=== PATIENT | male | born 1975 | race Caucasian/White ===

== ENCOUNTER 2016-09-02 16:35 | Emergency (ER) | payer OTHER ==
[~2016-09-02] VITALS: Ht 182.8 cm; Wt 77.1 kg
[~2016-09-02 16:35] MED LIST: ANAPROX DS550 MG PO; AUGMENTIN 875 M1 TAB PO; BIAXIN500 MG PO; CIPRODEX 0.3%-7.5 ML OT; CLINDAMYCIN HC300 MG PO; HYDROCODONE BIT1 T11 PO; LISINOPRIL5 MG PO
== END 2016-09-02 17:57 | disposition home or self-care (01) ==
LOC: ED 16:35
DX: S60.221A Contusion of right hand, initial encounter (principal); F17.200 Nicotine dependence, unspecified, uncomplicated; Z88.0 Allergy status to penicillin; Z79.899 Other long term (current) drug therapy; X58.XXXA Exposure to other specified factors, initial encounter; Y93.89 Activity, other specified; Y92.89 Other specified places as the place of occurrence of the external cause; Y99.9 Unspecified external cause status

== ENCOUNTER 2016-12-28 14:23 | Emergency (ER) | payer OTHER ==
[~2016-12-28] VITALS: Ht 177.8 cm; Wt 81.6 kg
== END 2016-12-28 16:03 | disposition home or self-care (01) ==
LOC: ED 14:23
DX: M54.12 Radiculopathy, cervical region (principal); F17.200 Nicotine dependence, unspecified, uncomplicated; Z79.899 Other long term (current) drug therapy; Z88.0 Allergy status to penicillin

== ENCOUNTER 2019-01-17 12:55 | Emergency (ER) | payer OTHER ==
[~2019-01-17] VITALS: Wt 81.6 kg
[2019-01-17] MEDS ORDERED: SEPTDS PO (14:32)
== END 2019-01-17 14:37 | disposition home or self-care (01) ==
LOC: ED 12:55
DX: S69.91XA Unspecified injury of right wrist, hand and finger(s), initial encounter (principal); L03.113 Cellulitis of right upper limb; F17.200 Nicotine dependence, unspecified, uncomplicated; Z79.899 Other long term (current) drug therapy; Z88.0 Allergy status to penicillin; W20.8XXA Other cause of strike by thrown, projected or falling object, initial encounter; Y93.89 Activity, other specified; Y92.89 Other specified places as the place of occurrence of the external cause; Y99.8 Other external cause status

== ENCOUNTER 2019-02-07 14:53 | Inpatient (IN) | payer OTHER ==
[~2019-02-07] VITALS: Ht 182.8 cm; Wt 80.5 kg
[~2019-02-07 14:53] MED LIST changes: +SEPTDS PO
[2019-02-07 14:55] VITALS: BP 158/108
[2019-02-07 15:29] LABS: BASO % 0.4 % (0.0-1.0); EOS # 0.2 10*3/uL (0.0-0.4); EOS % 2.6 % (1.0-4.0); HEMATOCRIT 40.6 % (42.0-52.0); HEMOGLOBIN 13.4 g/dl (14.0-18.0); LYMPH # 1.1 10*3/uL (1.3-4.4); LYMPH % 12.5 % (27.0-41.0); MEAN CELL VOLUME 94.6 fl (80.0-94.0); MEAN CORPUSCULAR HGB 31.2 pg (27.0-31.0); MEAN PLATELET VOLUME 11.3 fl (9.6-12.3); MONO # 1.2 10*3/uL (0.1-1.0); MONO % 13.5 % (3.0-9.0); NEUT # 6.4 10*3/uL (2.3-7.9); NEUT % 70.8 % (47.0-73.0); PLATELET COUNT AUTOMATED 174 10*3/uL (130-400); RED BLOOD COUNT 4.29 10*6/uL (4.50-5.90); RED CELL DISTRI WIDTH 12.8 % (0-14.5)
--- NOTE | 2019-02-07 15:38 | NUR ---
TORADOL AND ZOFRAN GIVEN BY ARISTEO ISIDRO
[2019-02-07 15:40] LABS: ACT PARTIAL THROMBO TIME 25.4 SECONDS (20.0-32.1)
[2019-02-07 15:44] LABS: ALBUMIN 3.5 gm/dl (3.1-4.5); ALKALINE PHOSPHATASE 82 U/L (45-117); BUN 6 mg/dl (7-24); CHLORIDE 99 mmol/L (98-107); CREATININE 0.65 mg/dL (0.70-1.30); POTASSIUM 3.8 mmol/L (3.5-5.1); SGOT/AST 47 IU/L (3-35); SGPT/ALT 43 U/L (12-78); SODIUM 130 mmol/L (136-145); TOTAL PROTEIN 7.3 gm/dL (6.4-8.2)
[2019-02-07 15:47] LABS: LIPASE 20884 U/L (73-393)
--- NOTE | 2019-02-07 15:55 | NUR ---
LAB CALLED WITH CRITICAL AMYLASE OF 1302
[2019-02-07 16:48] VITALS: BP 130/91
[2019-02-07 16:49] LABS: BILIRUBIN 2+ (NEGATIVE); BLOOD NEGATIVE (NEGATIVE); CLARITY CLEAR (CLEAR); COLOR ORANGE (YELLOW); GLUCOSE NEGATIVE (NEGATIVE); KETONE 2+ (NEGATIVE); LEUKO ESTERASE NEGATIVE (NEGATIVE); NITRITE POSITIVE (NEGATIVE); SPECIFIC GRAVITY 1.025 (1.005-1.030)
[2019-02-07 16:58] LABS: BACTERIA TRACE; MUCOUS 2+; RBC 0-2 rbc/hpf (0-2)
[2019-02-07 20:45] VITALS: BP 152/69
--- NOTE | 2019-02-07 20:45 | NUR ---
A 43, admitted to , under the services of MARVA Montero DO with a diagnosis of PANCREATITIS. Chief complaint is ABDOMINAL PAIN. Patient arrived via bed from ER. Monitor applied. Initial assessment completed. Vital signs taken and recorded. MARVA MONTERO DO notified of admission to the unit. Orders received. See assessment for past medical history, medications and allergies. Patient and/or family oriented to unit. [facility] visitation policy reviewed. Clothing/patient valuable form completed. MEHRDAD WALKER
--- NOTE | 2019-02-07 21:20 | NUR ---
DR ROSE NOTIFIED OF CONSULT. ORDERS TO REPEAT AMYLASE, LIPASE AND LFT IN AM AND TO CALL HIM WITH RESULTS.
[2019-02-08] VITALS: BP 138/80
--- NOTE | 2019-02-08 05:27 | NUR ---
MEDICATED WITH PRN DILAUDID ORDERED FOR C/O ABDOMINAL PAIN RATED 8/10
[2019-02-08 06:27] LABS: BASO % 0.6 % (0.0-1.0); EOS # 0.3 10*3/uL (0.0-0.4); HEMATOCRIT 39.2 % (42.0-52.0); HEMOGLOBIN 12.6 g/dl (14.0-18.0); LYMPH # 1.5 10*3/uL (1.3-4.4); LYMPH % 23.5 % (27.0-41.0); MEAN CELL VOLUME 97.3 fl (80.0-94.0); MEAN CORPUSCULAR HGB 31.3 pg (27.0-31.0); MEAN CORPUSCULAR HGB CONC 32.1 g/dl (33.0-37.0); MEAN PLATELET VOLUME 11.6 fl (9.6-12.3); MONO # 0.8 10*3/uL (0.1-1.0); MONO % 13.6 % (3.0-9.0); NEUT # 3.5 10*3/uL (2.3-7.9); PLATELET COUNT AUTOMATED 189 10*3/uL (130-400); RED BLOOD COUNT 4.03 10*6/uL (4.50-5.90); RED CELL DISTRI WIDTH 12.9 % (0-14.5); WHITE BLOOD COUNT 6.2 10*3/uL (4.8-10.8)
[2019-02-08 06:51] LABS: ALBUMIN 3.2 gm/dl (3.1-4.5); BILIRUBIN, DIRECT 0.5 mg/dL (0.0-0.2); BUN 6 mg/dl (7-24); CHLORIDE 98 mmol/L (98-107); CHOLESTEROL 129 mg/dL (<200); POTASSIUM 3.1 mmol/L (3.5-5.1); SGOT/AST 46 IU/L (3-35); SODIUM 132 mmol/L (136-145); TRIGLYCERIDES 94 mg/dl (<150); VLDL CHOLESTEROL 19 mg/dL (6-40)
[2019-02-08 06:59] LABS: ALKALINE PHOSPHATASE 77 U/L (45-117); FREE T4 1.29 ng/dl (0.76-1.46); HDL CHOLESTEROL 29 mg/dl (40-60); LDL CHOLESTEROL 81 mg/dL (9-159); SGPT/ALT 41 U/L (12-78); TOTAL PROTEIN 6.7 gm/dL (6.4-8.2)
[2019-02-08 07:01] LABS: LIPASE 2081 U/L (73-393)
--- NOTE | 2019-02-08 07:02 | NUR ---
FLU VACCINE NOT GIVEN. ALREADY ADMINISTERED ON 01/28/19
--- NOTE | 2019-02-08 07:23 | NUR ---
NOTIFIED DR ROSE OF PATIENTS AMYLASE/LIPASE/LFTS RESULTS. STATED TO CONTINUE CURRENT THERAPY. NO NEW ORDERS.
[2019-02-08 07:28] LABS: ACT PARTIAL THROMBO TIME 26.4 SECONDS (20.0-32.1)
[2019-02-08 08:00] VITALS: BP 132/88
[2019-02-08 08:31] LABS: VITAMIN D, 25-HYDROXY 29.9 ng/mL (30-100)
--- NOTE | 2019-02-08 09:00 | NUR ---
Clerk Analyst in to talk to patient. Patient states lives at home with family. There are few steps in the home. Physician: [facility] Pharmacy: [facility] Home health services: none Patient's level of ADLs: INDEPENDENT Patient has working utilities: all working DME: none Follow-up physician's appointment after d/c: will be made by hospitalist nurse director upon discharge Does patient want to access PORTAL?: no Discharge plan discussed with patient, he lives at home with family, is independent in adls and ambulation, works, drives, he states he will return home when medically stable and denies any home needs. ETHEL GONZALES
--- NOTE | 2019-02-08 09:59 | NUR ---
PT C/O PAIN OF 12/08 TO ABD AND REQUESTS IV DILAUDID WHICH WAS GIVEN AT THIS TIME. WILL CONT TO MONITOR. CALL LIGHT IN REACH.
--- NOTE | 2019-02-08 10:59 | NUR ---
PT STATES IV DILAUDID EFF. WILL CONT TO MONITOR. CALL LIGHT IN REACH.
[2019-02-08 12:00] VITALS: BP 134/70
--- NOTE | 2019-02-08 14:43 | NUR ---
Nutritional Support Services Note: Pt with Dx of pancreatitis. Currently tolerating a full liquid diet. Advance diet as tolerated. Will follow as needed. Nancy Salinas Rdn Ld
[2019-02-08 16:00] VITALS: BP 122/95
--- NOTE | 2019-02-08 16:31 | NUR ---
PT C/O PAIN TO ABD OF 5/10 AT THIS TIME AND REQUESTS IV DILAUDID. GIVEN AT THIS TIME. WILL CONT TO MONITOR. CALL LIGHT IN REACH.
--- NOTE | 2019-02-08 17:00 | NUR ---
PER DR ROSE ORDER MAG AND PHOS LEVELS FOR TOMORROW 02/09/19
--- NOTE | 2019-02-08 17:31 | NUR ---
IV DILAUDID EFF PER PT. WILL CONT TO MONITOR. CALL LIGHT IN REACH.
--- NOTE | 2019-02-08 19:37 | NUR ---
REPORT RECEIVED FROM DAYSHIFT NURSE. PATIENT LAYING IN BED DOING WORK ON LAPTOP. STATED HIS PAIN IS IMPROVED AND HE HAS TOLERATED HIS FULL LIQUID DIET. CALL LIGHT WITHIN REACH.
[2019-02-08 20:00] VITALS: BP 119/82
--- NOTE | 2019-02-08 21:00 | NUR ---
PATIENT MEDICATED WITH PRN NORCO FOR C/O 4/10 PAIN IN HIS STOMACH. WILL MONITOR FOR EFFECTIVENESS.
--- NOTE | 2019-02-08 21:45 | NUR ---
PER PATIENT PRN NORCO EFFECTIVE.
[2019-02-09] VITALS: BP 113/67
--- NOTE | 2019-02-09 01:42 | NUR ---
24 HR chart check completed.
--- NOTE | 2019-02-09 04:46 | NUR ---
PATIENT MEDICATED WITH PRN NORCO FOR C/O 5/10 ABDOMINAL PAIN. WILL MONITOR FOR EFFECTIVENESS.
--- NOTE | 2019-02-09 05:16 | NUR ---
PER PATIENT, PRN NORCO EFFECTIVE.
[2019-02-09 06:02] LABS: BASO # 0.1 10*3/uL (0.0-0.1); BASO % 1.1 % (0.0-1.0); EOS # 0.3 10*3/uL (0.0-0.4); EOS % 5.6 % (1.0-4.0); HEMATOCRIT 39.9 % (42.0-52.0); HEMOGLOBIN 12.7 g/dl (14.0-18.0); LYMPH # 1.5 10*3/uL (1.3-4.4); LYMPH % 27.8 % (27.0-41.0); MEAN CELL VOLUME 96.4 fl (80.0-94.0); MEAN CORPUSCULAR HGB 30.7 pg (27.0-31.0); MEAN CORPUSCULAR HGB CONC 31.8 g/dl (33.0-37.0); MEAN PLATELET VOLUME 11.5 fl (9.6-12.3); MONO # 0.9 10*3/uL (0.1-1.0); MONO % 17.6 % (3.0-9.0); NEUT # 2.5 10*3/uL (2.3-7.9); NEUT % 47.7 % (47.0-73.0); PLATELET COUNT AUTOMATED 226 10*3/uL (130-400); RED BLOOD COUNT 4.14 10*6/uL (4.50-5.90); RED CELL DISTRI WIDTH 12.9 % (0-14.5); WHITE BLOOD COUNT 5.3 10*3/uL (4.8-10.8)
[2019-02-09 06:21] LABS: BUN 4 mg/dl (7-24); CHLORIDE 102 mmol/L (98-107); LIPASE 1115 U/L (73-393); SODIUM 133 mmol/L (136-145)
[2019-02-09 06:27] LABS: ALKALINE PHOSPHATASE 79 U/L (45-117); CREATININE 0.57 mg/dL (0.70-1.30); PHOSPHOROUS 3.1 mg/dL (2.5-4.9); SGOT/AST 48 IU/L (3-35); SGPT/ALT 42 U/L (12-78); TOTAL PROTEIN 6.3 gm/dL (6.4-8.2)
[2019-02-09 06:31] LABS: POTASSIUM 4.1 mmol/L (3.5-5.1)
[2019-02-09 08:00] VITALS: BP 158/104
--- NOTE | 2019-02-09 08:15 | NUR ---
PER PA PTS BP IS ELEVATED 158/104 MANUAL. WILL ADMINISTER SCHEDULED LISINOPRIL AND PRN PAIN MEDICATION PT C/O ABD PAIN RATED 4/10. PT ASYMPTOMATIC R/T ELEVATED BP. WILL MONITOR FOR EFFECTIVENESS.
[2019-02-09 09:40] VITALS: BP 140/90
--- NOTE | 2019-02-09 09:40 | NUR ---
PTS BP NOW 140/90 MANUAL. PT STATES PAIN MEDICATION EFFECTIVE.
[2019-02-09 12:00] VITALS: BP 120/68
--- NOTE | 2019-02-09 12:06 | NUR ---
24 HR CHART CHECK COMPLETE
[2019-02-09] MEDS ORDERED: VITAMIN D32000 UNI1 PO (14:25)
[2019-02-09] MEDS ORDERED: NORCO 5-325 TA1 EACH PO (14:25)
--- NOTE | 2019-02-09 15:15 | NUR ---
Discharge instructions reviewed with patient/family. Patient receptive and verbalizes understanding. Follow-up care arranged. Written instructions given to patient/family. LITERATURE REGARDING BLAND DIET GIVEN TO PT. SELINA MCCLOUD
== END 2019-02-09 15:15 | disposition home or self-care (01) | DRG 391 ==
LOC: ED 14:53 → EDHOLD 19:22 → 4E 19:22
PROVIDERS: Internal Medicine; Nurse Practitioner Family; ADMIT Internal Medicine
DX: K29.80 Duodenitis without bleeding (principal); K85.90 Acute pancreatitis without necrosis or infection, unspecified; E87.1 Hypo-osmolality and hyponatremia; K86.3 Pseudocyst of pancreas; K86.1 Other chronic pancreatitis; R00.0 Tachycardia, unspecified; F17.210 Nicotine dependence, cigarettes, uncomplicated; I10 Essential (primary) hypertension; K76.0 Fatty (change of) liver, not elsewhere classified; D53.9 Nutritional anemia, unspecified; R79.82 Elevated C-reactive protein (CRP); R82.4 Acetonuria; Z71.6 Tobacco abuse counseling; Z88.0 Allergy status to penicillin; Z82.49 Family history of ischemic heart disease and other diseases of the circulatory system; Z83.6 Family history of other diseases of the respiratory system; Z79.899 Other long term (current) drug therapy

== ENCOUNTER → 2019-07-15 | Outpatient (CLI) | payer OTHER ==
[~2019-07-15] MED LIST changes: +NORCO 5-325 TA1 EACH PO; +VITAMIN D32000 UNI1 PO
== END | disposition home or self-care (01) ==
LOC: RAD 09:02
DX: M19.011 Primary osteoarthritis, right shoulder (principal)

== ENCOUNTER 2020-07-13 08:12 | Emergency (ER) | payer OTHER ==
[2020-07-13] MEDS ORDERED: DOXYCYCLINE100 M3 PO (08:31)
== END 2020-07-13 08:56 | disposition home or self-care (01) ==
LOC: ED 08:12
DX: L03.114 Cellulitis of left upper limb (principal); G43.909 Migraine, unspecified, not intractable, without status migrainosus; I10 Essential (primary) hypertension; F17.200 Nicotine dependence, unspecified, uncomplicated; Z88.0 Allergy status to penicillin; Z79.899 Other long term (current) drug therapy

== ENCOUNTER 2020-12-07 08:07 | Emergency (ER) | payer OTHER ==
[~2020-12-07] VITALS: Ht 190.5 cm; Wt 77.1 kg
[~2020-12-07 08:07] MED LIST changes: +DOXYCYCLINE100 M3 PO
[2020-12-07] MEDS ORDERED: PREDNISONE50 MG PO (08:53)
[2020-12-07] MEDS ORDERED: CYCLOBENZAPRINE5 M3 PO (08:53)
== END 2020-12-07 09:00 | disposition home or self-care (01) ==
LOC: ED 08:07
DX: M54.6 Pain in thoracic spine (principal); Z88.0 Allergy status to penicillin; Z79.899 Other long term (current) drug therapy

== ENCOUNTER 2021-05-31 08:32 | Inpatient (IN) | payer OTHER ==
[~2021-05-31] VITALS: Ht 183 cm; Wt 73.3 kg
[~2021-05-31 08:32] MED LIST changes: +CYCLOBENZAPRINE5 M3 PO; +PREDNISONE50 MG PO
[2021-05-31 08:37] VITALS: BP 121/97
[2021-05-31 09:07] LABS: BASO # 0.1 10*3/uL (0.0-0.1); BASO % 0.4 % (0.0-1.0); EOS # 0.2 10*3/uL (0.0-0.4); EOS % 1.1 % (1.0-4.0); HEMATOCRIT 47.6 % (42.0-52.0); LYMPH # 1.7 10*3/uL (1.3-4.4); LYMPH % 11.3 % (27.0-41.0); MEAN CELL VOLUME 94.8 fl (80.0-94.0); MEAN CORPUSCULAR HGB 30.7 pg (27.0-31.0); MEAN CORPUSCULAR HGB CONC 32.4 g/dl (33.0-37.0); MEAN PLATELET VOLUME 10.4 fl (9.6-12.3); MONO # 1.2 10*3/uL (0.1-1.0); MONO % 8.1 % (3.0-9.0); NEUT % 78.6 % (47.0-73.0); PLATELET COUNT AUTOMATED 331 10*3/uL (130-400); RED BLOOD COUNT 5.02 10*6/uL (4.50-5.90); RED CELL DISTRI WIDTH 12.5 % (0-14.5); WHITE BLOOD COUNT 15.2 10*3/uL (4.8-10.8)
[2021-05-31 09:09] LABS: BILIRUBIN 2+ (Negative); BLOOD Negative (Negative); CLARITY Clear (Clear); COLOR Orange (Yellow); GLUCOSE Negative (Negative); KETONE 1+ (Negative); LEUKO ESTERASE Trace (Negative); NITRITE Positive (Negative); SPECIFIC GRAVITY >= 1.030 (1.001-1.030)
[2021-05-31 09:19] LABS: ALBUMIN 3.5 gm/dl (3.1-4.5); ALKALINE PHOSPHATASE 76 U/L (45-117); BUN 9 mg/dl (7-24); CHLORIDE 105 mmol/L (98-107); CREATININE 0.74 mg/dL (0.70-1.30); LIPASE 642 U/L (73-393); POTASSIUM 4.1 mmol/L (3.5-5.1); SGOT/AST 15 IU/L (3-35); SGPT/ALT 24 U/L (12-78); SODIUM 137 mmol/L (136-145); TOTAL PROTEIN 7.7 gm/dL (6.4-8.2)
[2021-05-31 09:26] LABS: BACTERIA 4+; WBC TNTC wbc/hpf (0-5)
[2021-05-31 10:30] VITALS: BP 120/88
[2021-05-31] MEDS ORDERED: ZESTRIL10 MG PO (12:28)
[2021-05-31 12:45] VITALS: BP 120/90
[2021-05-31 14:15] VITALS: BP 129/91
[2021-05-31] MEDS ORDERED: OMEPRAZOLE40 MG PO (15:06)
[2021-05-31 20:00] VITALS: BP 117/81
[2021-06-01] VITALS: BP 124/85
[2021-06-01 06:22] LABS: ALBUMIN 2.7 gm/dl (3.1-4.5); CHLORIDE 109 mmol/L (98-107); POTASSIUM 3.8 mmol/L (3.5-5.1); SODIUM 138 mmol/L (136-145)
[2021-06-01 06:35] LABS: ALKALINE PHOSPHATASE 55 U/L (45-117); BUN 6 mg/dl (7-24); CHOLESTEROL 98 mg/dL (<200); CREATININE 0.56 mg/dL (0.70-1.30); LDL CHOLESTEROL 55 mg/dL (9-159); SGOT/AST 14 IU/L (3-35); SGPT/ALT 18 U/L (12-78); TOTAL PROTEIN 5.8 gm/dL (6.4-8.2); TRIGLYCERIDES 60 mg/dl (<150)
[2021-06-01 06:47] LABS: BASO % 0.5 % (0.0-1.0); EOS # 0.5 10*3/uL (0.0-0.4); EOS % 5.5 % (1.0-4.0); HEMATOCRIT 37.8 % (42.0-52.0); LYMPH # 1.6 10*3/uL (1.3-4.4); LYMPH % 18.9 % (27.0-41.0); MEAN CELL VOLUME 95.2 fl (80.0-94.0); MEAN CORPUSCULAR HGB 30.2 pg (27.0-31.0); MEAN CORPUSCULAR HGB CONC 31.7 g/dl (33.0-37.0); MEAN PLATELET VOLUME 11.1 fl (9.6-12.3); MONO % 11.8 % (3.0-9.0); NEUT # 5.3 10*3/uL (2.3-7.9); NEUT % 62.9 % (47.0-73.0); PLATELET COUNT AUTOMATED 276 10*3/uL (130-400); RED BLOOD COUNT 3.97 10*6/uL (4.50-5.90); RED CELL DISTRI WIDTH 12.3 % (0-14.5); WHITE BLOOD COUNT 8.4 10*3/uL (4.8-10.8)
[2021-06-01 08:00] VITALS: BP 104/60
[2021-06-01 12:00] VITALS: BP 113/63; BP 150/76
[2021-06-01 16:00] VITALS: BP 113/63
[2021-06-01 20:00] VITALS: BP 128/83
[2021-06-02] VITALS: BP 123/78
[2021-06-02 06:41] LABS: BASO % 0.5 % (0.0-1.0); EOS # 0.5 10*3/uL (0.0-0.4); EOS % 6.2 % (1.0-4.0); HEMATOCRIT 36.3 % (42.0-52.0); LYMPH # 1.6 10*3/uL (1.3-4.4); LYMPH % 19.2 % (27.0-41.0); MEAN CORPUSCULAR HGB 30.2 pg (27.0-31.0); MEAN CORPUSCULAR HGB CONC 31.4 g/dl (33.0-37.0); MONO % 11.8 % (3.0-9.0); NEUT # 5.3 10*3/uL (2.3-7.9); NEUT % 61.9 % (47.0-73.0); PLATELET COUNT AUTOMATED 293 10*3/uL (130-400); RED BLOOD COUNT 3.78 10*6/uL (4.50-5.90); RED CELL DISTRI WIDTH 12.3 % (0-14.5); WHITE BLOOD COUNT 8.5 10*3/uL (4.8-10.8)
[2021-06-02 07:03] LABS: ALBUMIN 2.8 gm/dl (3.1-4.5); ALKALINE PHOSPHATASE 57 U/L (45-117); BUN 4 mg/dl (7-24); CHLORIDE 111 mmol/L (98-107); CREATININE 0.53 mg/dL (0.70-1.30); LIPASE 708 U/L (73-393); POTASSIUM 3.5 mmol/L (3.5-5.1); SGOT/AST 11 IU/L (3-35); SGPT/ALT 19 U/L (12-78); SODIUM 140 mmol/L (136-145); TOTAL PROTEIN 5.9 gm/dL (6.4-8.2)
[2021-06-02 08:00] VITALS: BP 110/64
[2021-06-02] MEDS ORDERED: CIPRO500 MG PO (11:40)
[2021-06-02] MEDS ORDERED: METRONIDAZOLE500 M1 PO (11:40)
[2021-06-02 12:00] VITALS: BP 120/86
[2021-06-02] MEDS ORDERED: ZOFRAN4 MG PO (12:04)
== END 2021-06-02 13:01 | disposition home or self-care (01) | DRG 439 ==
LOC: ED 08:32 → EDHOLD 12:18 → 4E 12:18
PROVIDERS: Emergency Medicine; Internal Medicine; ADMIT Family Medicine; ATTEND Family Medicine
DX: K85.90 Acute pancreatitis without necrosis or infection, unspecified (principal); N30.00 Acute cystitis without hematuria; E44.0 Moderate protein-calorie malnutrition; I10 Essential (primary) hypertension; K29.80 Duodenitis without bleeding; R73.9 Hyperglycemia, unspecified; D53.9 Nutritional anemia, unspecified; F17.210 Nicotine dependence, cigarettes, uncomplicated; Z71.6 Tobacco abuse counseling; Z88.0 Allergy status to penicillin; Z79.1 Long term (current) use of non-steroidal anti-inflammatories (NSAID); Z79.899 Other long term (current) drug therapy; Z68.22 Body mass index [BMI] 22.0-22.9, adult

== ENCOUNTER 2022-09-21 06:55 | Inpatient (IN) | payer OTHER ==
[~2022-09-21] VITALS: Ht 182.9 cm; Wt 91.6 kg
[~2022-09-21 06:55] MED LIST changes: +CIPRO500 MG PO; +METRONIDAZOLE500 M1 PO; +OMEPRAZOLE40 MG PO; +ZESTRIL10 MG PO; +ZOFRAN4 MG PO; +[UNRECOGNIZED DRUG - OTHER] IM
[2022-09-21 07:11] VITALS: BP 142/78
[2022-09-21] MEDS ORDERED: TRAMADOL HCL50 MG PO (07:44)
[2022-09-21] MEDS ORDERED: CREON DR 36,001 EAC1 PO (07:45)
[2022-09-21 07:50] LABS: BASO # 0.1 10*3/uL (0.0-0.1); BASO % 0.5 % (0.0-1.0); EOS # 0.2 10*3/uL (0.0-0.4); EOS % 1.4 % (1.0-4.0); HEMATOCRIT 51.7 % (42.0-52.0); LYMPH # 1.9 10*3/uL (1.3-4.4); LYMPH % 12.3 % (27.0-41.0); MEAN CELL VOLUME 89.9 fl (80.0-94.0); MEAN CORPUSCULAR HGB 29.4 pg (27.0-31.0); MEAN CORPUSCULAR HGB CONC 32.7 g/dl (33.0-37.0); MONO # 1.1 10*3/uL (0.1-1.0); MONO % 7.2 % (3.0-9.0); NEUT % 78.1 % (47.0-73.0); PLATELET COUNT AUTOMATED 333 10*3/uL (130-400); RED BLOOD COUNT 5.75 10*6/uL (4.50-5.90); RED CELL DISTRI WIDTH 12.6 % (0-14.5); WHITE BLOOD COUNT 15.4 10*3/uL (4.8-10.8)
[2022-09-21 08:21] LABS: ALKALINE PHOSPHATASE 83 U/L (46-116); BUN 7 mg/dl (9-23); CHLORIDE 103 mmol/L (98-107); LIPASE 2884 U/L (12-53); POTASSIUM 4.2 mmol/L (3.4-5.1); SGPT/ALT 15 U/L (10-49); TOTAL PROTEIN 7.5 gm/dL (6.0-8.0)
[2022-09-21 09:16] LABS: ACT PARTIAL THROMBO TIME 24.5 SECONDS (20.0-32.1); INTERNATIONAL NORM RATIO 1.1 (2.0-3.5)
[2022-09-21 13:39] VITALS: BP 130/62
[2022-09-21 20:00] VITALS: BP 147/92
[2022-09-21 22:32] LABS: BILIRUBIN Negative (Negative); BLOOD Negative (Negative); CLARITY Clear (Clear); COLOR Yellow (Yellow); GLUCOSE Negative (Negative); KETONE 3+ (Negative); LEUKO ESTERASE Negative (Negative); NITRITE Negative (Negative); SPECIFIC GRAVITY >= 1.030 (1.001-1.030); UROBILINOGEN 0.2 E.U./dl (0.0-1.0)
[2022-09-21 22:46] LABS: WBC 0-2 wbc/hpf (0-5)
[2022-09-22] VITALS: BP 137/81
[2022-09-22 07:11] LABS: BASO % 0.2 % (0.0-1.0); EOS % 0.3 % (1.0-4.0); HEMATOCRIT 44.1 % (42.0-52.0); LYMPH # 1.5 10*3/uL (1.3-4.4); LYMPH % 9.3 % (27.0-41.0); MEAN CELL VOLUME 90.4 fl (80.0-94.0); MEAN CORPUSCULAR HGB 29.5 pg (27.0-31.0); MEAN CORPUSCULAR HGB CONC 32.7 g/dl (33.0-37.0); MEAN PLATELET VOLUME 10.8 fl (9.6-12.3); MONO # 1.4 10*3/uL (0.1-1.0); NEUT # 12.8 10*3/uL (2.3-7.9); NEUT % 80.9 % (47.0-73.0); PLATELET COUNT AUTOMATED 309 10*3/uL (130-400); RED BLOOD COUNT 4.88 10*6/uL (4.50-5.90); RED CELL DISTRI WIDTH 12.8 % (0-14.5); WHITE BLOOD COUNT 15.8 10*3/uL (4.8-10.8)
[2022-09-22 07:50] LABS: BUN 6 mg/dl (9-23); CHLORIDE 107 mmol/L (98-107); CHOLESTEROL 136 mg/dL (<200); LDL CHOLESTEROL 77 mg/dL (9-159); POTASSIUM 3.8 mmol/L (3.4-5.1); THYROID STIM HORMONE (HS) 0.738 uIU/ml (0.550-4.780); TRIGLYCERIDES 62 mg/dl (<150)
[2022-09-22 08:00] VITALS: BP 128/82
[2022-09-22 08:03] LABS: VITAMIN D, 25-HYDROXY 26.7 ng/mL (30-100)
[2022-09-22 12:00] VITALS: BP 139/94
[2022-09-22 16:00] VITALS: BP 133/88
[2022-09-22 20:00] VITALS: BP 128/89
[2022-09-23] VITALS: BP 117/78
[2022-09-23 08:00] VITALS: BP 118/73
[2022-09-23 09:57] LABS: ALKALINE PHOSPHATASE 58 U/L (46-116); CHLORIDE 101 mmol/L (98-107); POTASSIUM 3.7 mmol/L (3.4-5.1); SGPT/ALT 9 U/L (10-49); TOTAL PROTEIN 6.4 gm/dL (6.0-8.0)
[2022-09-23 10:03] LABS: BUN < 5 mg/dl (9-23)
[2022-09-23 12:00] VITALS: BP 113/74
[2022-09-23 16:00] VITALS: BP 113/74
[2022-09-23 20:00] VITALS: BP 93/63
[2022-09-24] VITALS: BP 97/63
[2022-09-24 06:02] LABS: BUN 7 mg/dl (9-23); CHLORIDE 103 mmol/L (98-107); POTASSIUM 3.4 mmol/L (3.4-5.1)
[2022-09-24 06:15] LABS: BASO # 0.1 10*3/uL (0.0-0.1); BASO % 0.5 % (0.0-1.0); EOS # 0.4 10*3/uL (0.0-0.4); HEMATOCRIT 42.4 % (42.0-52.0); LYMPH # 2.4 10*3/uL (1.3-4.4); MEAN CELL VOLUME 91.2 fl (80.0-94.0); MEAN CORPUSCULAR HGB 29.2 pg (27.0-31.0); MEAN CORPUSCULAR HGB CONC 32.1 g/dl (33.0-37.0); MEAN PLATELET VOLUME 10.5 fl (9.6-12.3); MONO # 1.4 10*3/uL (0.1-1.0); MONO % 11.7 % (3.0-9.0); NEUT # 7.6 10*3/uL (2.3-7.9); NEUT % 64.5 % (47.0-73.0); PLATELET COUNT AUTOMATED 285 10*3/uL (130-400); RED BLOOD COUNT 4.65 10*6/uL (4.50-5.90); RED CELL DISTRI WIDTH 12.6 % (0-14.5); WHITE BLOOD COUNT 11.8 10*3/uL (4.8-10.8)
[2022-09-24 08:00] VITALS: BP 131/84
[2022-09-24] MEDS ORDERED: HYDROCODONE-AC1 EAC1 PO (09:22)
[2022-09-24] MEDS ORDERED: VITAMIN D250 MCG PO (09:33)
== END 2022-09-24 10:45 | disposition home or self-care (01) | DRG 439 ==
LOC: ED 06:55 → 4E 09:28 → EDHOLD 09:28 → 4E 14:02
PROVIDERS: Internal Medicine; Registered Nurse; Student in an Organized Health Care Education/Training Program; ADMIT Internal Medicine; ATTEND Internal Medicine
DX: K85.90 Acute pancreatitis without necrosis or infection, unspecified (principal); E87.1 Hypo-osmolality and hyponatremia; E87.20 Acidosis, unspecified; I10 Essential (primary) hypertension; E55.9 Vitamin D deficiency, unspecified; R73.9 Hyperglycemia, unspecified; F17.210 Nicotine dependence, cigarettes, uncomplicated; Z71.6 Tobacco abuse counseling; Z88.0 Allergy status to penicillin; Z79.899 Other long term (current) drug therapy; Z82.49 Family history of ischemic heart disease and other diseases of the circulatory system